=== PATIENT | female | born 1975 | race Caucasian/White ===

== ENCOUNTER 2023-05-15 00:53 | Emergency (ER) | payer MEDICAID, SELFPAY ==
[2023-05-15 01:00] VITALS: BP 150/127; PULSE 80; RESP 20; TEMP 36.7; O2SAT 98; BMI 44.7
--- NOTE | 2023-05-15 01:10 | ED_ITS ---
HPI - Fall General: Chief Complaint: Fall Stated Complaint: fell, Time Seen by Provider: 05/15/23 00:59 Source: patient Mode of arrival: wheelchair Limitations: no limitations History of Present Illness: Patient is a 48-year-old female who presents to the emergency room with a fall. Patient states that she was walking in her friend's driveway and does not remember the mechanism of fall this afternoon. States she stood up and went into the house and fell again inside the home. Denies hitting her head or loss of consciousness. Reports mid to lower back pain and left hip/leg pain. Reports pain is 7 out of 10 on pain scale. Denies any chest pain or shortness of breath. Does report some nausea and vomiting in the past hour. states she is on blood thinners Xarelto for previous clots. No other complaints at this time. MD complaint: fall Fall witnessed: yes, by family Associated symptoms-after fall: Denies abdominal pain, chest pain or headache(s) Review of Systems Const: Denies: fever(s) or chills Eyes: Denies: change in vision or blurry vision ENMT: Denies: throat pain Card: Denies: chest pain or palpitations Resp: Denies: dyspnea or productive cough GI: Reports: nausea and vomiting; Denies: abdominal pain : Denies: flank pain Musc: Reports: back pain Skin/Breast: Denies: rash Neuro: Denies: headache(s) Psych: Denies: anxiety Physical Exam Const: COMMON NORMALS: patient oriented x3 and alert GENERAL APPEARANCE: cooperative HENMT: COMMON NORMALS: normocephalic and Normal external nose present HEAD & SCALP: normocephalic NOSE: Normal external nose present Eye: COMMON NORMALS: EOMs intact bilaterally Neck/C-Spine: COMMON NORMALS: full ROM CERVICAL SPINE: Yes cervical ROM normal Chest: CHEST: Yes Symmetrical chest wall rise Resp: COMMON NORMALS: normal respiratory effort and clear to auscultation bilaterally EFFORT & INSPECTION: Yes symmetric chest movement AUSCULTATION: clear to auscultation bilaterally Cardio: COMMON NORMALS: S1 normal heart sound present HEART SOUNDS: S1 normal heart sound present GI: COMMON NORMALS: Normal to inspection, nondistended, normoactive bowel sounds present : COMMON NORMALS: Yes no CVA tenderness BLADDER/KIDNEY EXAM: Yes no CVA tenderness Back/Pelvis: COMMON NORMALS: no CVA tenderness LUMBAR SPINE/LOWER BACK: Yes lumbar spinal tenderness Neuro: COMMON NORMALS: patient oriented x3 SENSORIUM/ORIENTATION: Yes alert Course Vital Signs: Vital signs: Vital Signs Temperature 98.0 F 05/15/23 01:00 Pulse Rate 84 05/15/23 03:12 Respiratory Rate 22 H 05/15/23 03:12 Blood Pressure 144/91 05/15/23 03:12 Pulse Oximetry 93 05/15/23 03:12 Oxygen Delivery Me thod Room Air 05/15/23 01:37 MDM - Fall Medical Decision Making Patient presents here after a fall complaint left hip and back pain patient's x- rays here are normal she had complained of lower leg pain to get an ultrasound she does not have a DVT has a superficial clot in her saphenous she is on Xarelto she is stable for discharge she is to follow-up with PCP and return if worsening. Medical Records I reviewed the patient's medical records. Lab Data I reviewed the patient's lab results. 05/15/23 01:25 05/15/23 01:25 Laboratory Results WBC 9.12 10^3/uL (3.29-11.43) 05/15/23 01:25 RBC 4.61 10^6/uL (3.85-5.65) 05/15/23 01:25 Hgb 11.20 g/dL (11.27-16.99) L 05/15/23 01:25 Hct 38.0 % (36-47) 05/15/23 01:25 MCV 82.4 fl (85-98) L 05/15/23 01:25 MCH 24.3 pg (27-33) L 05/15/23 01:25 MCHC 29.5 g/dL (30-55) L 05/15/23 01:25 RDW 16.3 % (12.1-15.1) H 05/15/23 01:25 Plt Count 243 10^3/cmm (157-399) 05/15/23 01:25 MPV 10.7 fL (7.4-10.4) H 05/15/23 01:25 Neut % (Auto) 65.7 % 05/15/23 01:25 Lymph % (Auto) 24.0 % 05/15/23 01:25 [place] % (Auto) 5.4 % 05/15/23 01:25 Eos % (Auto) 4.4 % 05/15/23 01:25 Baso % (Auto) 0.3 % 05/15/23 01:25 Neut # (Auto) 5.99 10^3/uL (1.8-7.7) 05/15/23 01:25 Lymph # (Auto) 2.2 10^3/uL (0.8-4.8) 05/15/23 01:25 [place] # (Auto) 0.5 10^3/uL (0.2-0.9) 05/15/23 01:25 Eos # (Auto) 0.4 10^3/uL (0.0-0.8) 05/15/23 01:25 Baso # (Auto) 0.0 10^3/uL (0.0-0.1) 05/15/23 01:25 Nucleated RBC % (auto) 0 % 05/15/23 01:25 Nucleated RBCs # 0.0 /100WBC 05/15/23 01:25 Sodium 141 mmol/L (136-145) 05/15/23 01:25 Potassium 3.7 mmol/L (3.5-5.1) 05/15/23 01:25 Chloride 101 mmol/L (98-107) 05/15/23 01:25 Carbon Dioxide 30 mmol/L (22-29) H 05/15/23 01:25 Anion Gap 13.7 (5-19) 05/15/23 01:25 BUN 11 mg/dL (6-20) 05/15/23 01:25 Creatinine 0.8 mg/dL (0.5-0.9) 05/15/23 01:25 GFR Calculation 76.2 mL/min (90-130) L 05/15/23 01:25 Glucose 109 mg/dL (65-115) 05/15/23 01:25 Calculated Osmolality 292 mOsm/kg (285-295) 05/15/23 01:25 Calcium 9.4 mg/dL (8.5-10.5) 05/15/23 01:25 Total Bilirubin 0.2 mg/dL (0.15-1.2) 05/15/23 01:25 AST 12 U/L (0-32) 05/15/23 01:25 ALT 6 U/L (0-33) 05/15/23 01:25 Alkaline Phosphatase 59 U/L (35-105) 05/15/23 01:25 Total Protein 6.6 g/dL (6.6-8.7) 05/15/23 01:25 Albumin 4.0 g/dL (3.5-5.2) 05/15/23 01:25 Globulin 2.6 g/dL (1.3-4.6) 05/15/23 01:25 XR interpretation done by ED provider, pending radiology final review Discharge Plan Discharge Patient Disposition: Home Clinical Impression: Low back pain, Fall, Acute superficial venous thrombosis of left lower extremity Condition: Stable Prescriptions: New ondansetron 4 mg tablet,disintegrating 4 mg PO Q6H PRN (Reason: nausea and vomiting) Qty: 14 0RF Naprosyn 500 mg tablet 500 mg PO BID PRN (Reason: pain) Qty: 20 0RF Discharge Orders: Discharge ED (Routine); Ordered 05/15/23 Ordered By: Sadaf Kay Referrals: Jona Gaines MD [Primary Care Provider] - 1-3 days Discharge Diet: Advance as tolerated Discharge Activity: Resume usual activity Patient Instructions: Superficial Thrombophlebitis (ED), Back Pain (ED) Coding Level of Care Code ED [place] Supervisor for Ashleigh Moss
--- NOTE | 2023-05-15 01:17 | XRR_ITS ---
PROCEDURE INFORMATION: Exam: XR Left Hip Exam date and time: 05/15/2023 1:33 AM Age: 48 years old Clinical indication: Injury or trauma; Patient HX: 2 falls last night, PT states left groin pain; Additional info: Fall TECHNIQUE: Imaging protocol: Radiologic exam of the left hip. Views: 2 or 3 views hip with pelvis when performed. COMPARISON: No relevant prior studies available. FINDINGS: Bones/joints: Unremarkable. No acute fracture. Soft tissues: Unremarkable. Vasculature: A vascular stent is seen in the lower abdomen. XR/XR hip LT 2-3V wo/w pel* [id number] IMPRESSION: No acute findings.
--- NOTE | 2023-05-15 01:17 | XRR_ITS ---
PROCEDURE INFORMATION: Exam: XR Lumbosacral Spine Exam date and time: 05/15/2023 2:01 AM Age: 48 years old Clinical indication: Injury or trauma; Patient HX: 2 falls last night, PT states low back pain; Additional info: Fall TECHNIQUE: Imaging protocol: Radiologic exam of the lumbosacral spine. Views: 2 or 3 views. COMPARISON: CR (PELVIS, ) 05/15/2023 1:33 AM FINDINGS: Bones/joints: There are 5 [id number] lumbar vertebrae. There is no acute lumbar spine fracture or dislocation. There is a 7 mm grade 1 anterolisthesis of L5 on S1 due to bilateral L5 spondylolysis. Advanced degenerative disc disease and degenerative joint disease at L5-S1 level result in bilateral L5-S1 foraminal stenosis. Soft tissues: Unremarkable. Vasculature: An infrarenal IVC filter is seen. There is a vascular stent in the lower abdomen, presumably in the left common iliac artery or vein. XR/XR lumbar spine 2-3V* [id number] IMPRESSION: 1. No acute abnormalities. 2. A 7 mm grade 1 anterolisthesis of L5 on S1 due to bilateral L5 spondylolysis. 3. Advanced degenerative disc disease and degenerative joint disease at L5-S1 level result in bilateral L5-S1 foraminal stenosis.
--- NOTE | 2023-05-15 01:17 | USR_ITS ---
PROCEDURE INFORMATION: Exam: US Duplex Left Lower Extremity Veins, Limited Exam date and time: 05/15/2023 2:18 AM Age: 48 years old Clinical indication: Leg, lower; Patient HX: History of hypercoagulability syndrome S/P multiple pulmonary emboli. C/O pain tonight in the left medial calf. ; Additional info: Leg pain TECHNIQUE: Imaging protocol: Real-time duplex ultrasound of the left extremity with 2-D vargas scale, color Doppler flow and spectral waveform analysis including responses to compression and other maneuvers (when performed) with image documentation. Limited exam focused on the left lower extremity veins. COMPARISON: No relevant prior studies available. FINDINGS: Left deep veins: Unremarkable. The common femoral, femoral, proximal profunda femoral and popliteal veins are patent without thrombus. Normal Doppler waveforms. Normal compressibility and/or augmentation response. The left posterior tibial vein was not visualized. Superficial veins: The distal left greater saphenous vein demonstrates occluding thrombosis, while the proximal left greater saphenous vein demonstrates no thrombosis. Soft tissues: Unremarkable. US/CV venous duplex [facility] [id number] IMPRESSION: 1. No evidence of deep vein thrombosis in the left lower extremity. 2. The distal left greater saphenous vein demonstrates occluding thrombosis, while the proximal left greater saphenous vein demonstrates no thrombosis.
[2023-05-15 01:28] VITALS: RESP 18
[2023-05-15] MEDS: ondansetron 2 mg/ML SDV 2 mL 4 MG IVP (01:28)
[2023-05-15] MEDS: morphine 4 mg/mL SDV 1 mL IVP (01:28)
[2023-05-15 01:29] LABS: Basophils % 0.3 %; Eosinophils # 0.4 10^3/uL (0.0-0.8); Eosinophils % 4.4 %; Lymphocytes # 2.2 10^3/uL (0.8-4.8); Mean Corpuscular HGB Conc 29.5 g/dL (30-55); Mean Corpuscular Hemoglobin 24.3 pg (27-33); Mean Corpuscular Volume 82.4 fl (85-98); Mean Platelet Volume 10.7 fL (7.4-10.4); Monocytes # 0.5 10^3/uL (0.2-0.9); Monocytes % 5.4 %; Neutrophils # 5.99 10^3/uL (1.8-7.7); Neutrophils % 65.7 %; Nucleated Red Blood Cells % 0 %; Platelet Count 243 10^3/cmm (157-399); Red Blood Count 4.61 10^6/uL (3.85-5.65); Red Cell Distribution Width 16.3 % (12.1-15.1); White Blood Count 9.12 10^3/uL (3.29-11.43)
[2023-05-15 01:37] VITALS: BP 155/88; PULSE 84; RESP 20; O2SAT 96
[2023-05-15 01:51] LABS: Alanine Aminotransferase 6 U/L (0-33); Alkaline Phosphatase 59 U/L (35-105); Anion Gap 13.7 (5-19); Aspartate Amino Transferase 12 U/L (0-32); Blood Urea Nitrogen 11 mg/dL (6-20); Calcium 9.4 mg/dL (8.5-10.5); Carbon Dioxide 30 mmol/L (22-29); Chloride 101 mmol/L (98-107); Globulin 2.6 g/dL (1.3-4.6); Glomerular Filtration Rate 76.2 mL/min (90-130); Glucose 109 mg/dL (65-115); Osmolality Calculated 292 mOsm/kg (285-295); Potassium 3.7 mmol/L (3.5-5.1); Sodium 141 mmol/L (136-145); Total Bilirubin 0.2 mg/dL (0.15-1.2); Total Protein 6.6 g/dL (6.6-8.7)
[2023-05-15] MEDS: metoclopramide 5 mg/mL SDV 2 mL IVP (02:17)
[2023-05-15] MEDS: diphenhydrAMINE 50 mg/mL SDV 1mL 25 MG IVP (02:18)
[2023-05-15 02:35] VITALS: BP 144/91; PULSE 79; RESP 22; O2SAT 97
[2023-05-15] MEDS: ketorolac 30 mg/mL INJ 15 MG IVP (02:53)
[2023-05-15 03:12] VITALS: BP 144/91; PULSE 84; RESP 22; O2SAT 93
== END 2023-05-15 03:13 | disposition home or self-care (01) ==
PROVIDERS: Emergency Provider Emergency Medicine; PCP Family Medicine
DX: M54.50 Low back pain, unspecified (principal); I82.812 Embolism and thrombosis of superficial veins of left lower extremity
CPT/HCPCS: 72100; 73502; 80053; 85025; 93971; 96374; 96375; 99285; J1200; J1885; J2270; J2405; J2765